=== PATIENT | female | born 1950 | race Caucasian/White ===

== ENCOUNTER 2018-06-07 15:19 | Outpatient (CLI) | payer MEDICARE, OTHER, SELFPAY ==
--- NOTE | 2018-06-07 15:33 | MRI_ITS ---
STUDY: MRI BRAIN WITHOUT CONTRAST REASON FOR EXAM: Female, 67 years old. TIA TECHNIQUE: Standardized multiplanar fat and water weighted pulse sequences were obtained. COMPARISON: None. FINDINGS: Mild atrophy and minor periventricular white matter ischemic changes without mass effect or restricted diffusion. Normal bilateral basal ganglia. Normal thalami. There is no extra-axial fluid accumulation. Normal flow voids within the major intracranial circulation suggesting patency by spin echo criteria. Normal sella turcica, pituitary gland, infundibular stalk, optic chiasm and hypothalamus. Normal tectal plate and pineal gland. Normal midbrain, nilson and medulla. Normal cerebellum. Normal basal cisterns. Normal bilateral temporal bones. Normal bilateral internal auditory canals. No demonstrated orbital abnormality, within the constraints of a routine brain study. Minor mucosal thickening of the ethmoid air cells and sphenoid sinus. Normal calvarium and skull base. Normal visualized soft tissue structures. Normal visualized upper cervical spine. MRI/Brain without Contrast IMPRESSION: Mild atrophy and minor periventricular white matter ischemic changes without evidence for acute infarct Electronically Signed: Víctor Navarrete MD at 16:47 EDT , Service support ,
--- NOTE | 2018-06-07 15:33 | MRI_ITS ---
STUDY: MRI CERVICAL SPINE WITHOUT CONTRAST REASON FOR EXAM: Female, 67 years old. Abnormal movement in arms and legs TECHNIQUE: Standardized fat and water weighted pulse sequences were obtained in the sagittal and axial planes. COMPARISON: None FINDINGS: Normal foramen magnum and brainstem-cervical cord junction. Normal craniovertebral junction. Normal anterior atlantoaxial articulation. Normal odontoid process. Normal cervical lordosis. Normal vertebral bodies and posterior osseous elements. C2-3: Normal endplates. Normal disc height, signal and morphology. Normal central canal and intervertebral neural foramina. C3-4: Grade 1 spondylolisthesis. Mild bulging disc osteophyte complex and left posterolateral/foraminal disc protrusion narrowing of the central canal and minor impingement upon the ventral surface of the cord. Severe left neural foraminal stenosis secondary to disc and bony hypertrophy. Moderate right neuroforaminal stenosis secondary to bony hypertrophy C4-5: Near-complete developmental fusion of C4 and C5 vertebral bodies. Small broad-based central osteophyte protrusion narrowing the central canal and mildly compressing the cord. Normal bilateral neuroforamina C5-6: Grade 1 retrolisthesis. Narrowed disc space and endplate spurring. Mild bulging disc osteophyte complex. Mild narrowing the central canal. Severe bilateral neuroforaminal stenosis secondary to bony hypertrophy C6-7: Narrowed disc space with endplate spurring. Minor bulging disc osteophyte complex. Normal central canal. Moderate right neural foramen and moderate left neuroforaminal stenosis due to bony hypertrophy. There are bilateral foraminal perineural cysts C7-T1: Near complete fusion of C7 and T1. Normal disc height, signal and morphology. Normal central canal and intervertebral neural foramina. Normal cervical cord. Normal visualized soft tissue structures. MRI/Spine Cervical (Routine) IMPRESSION: No evidence for acute fracture or subluxation. Advanced spondylosis and multilevel spinal stenosis secondary to disc disease and bony hypertrophy most severe at C3-4 and C5-C6 with findings as above Electronically Signed: Víctor Navarrete MD at 20:01 EDT , Service support ,
== END 2018-07-30 12:19 ==
PROVIDERS: Family Provider Family Medicine; PCP Family Medicine; Referring Provider Psychiatry & Neurology Neurology; Visit Provider Psychiatry & Neurology Neurology
DX: Z86.73 Personal history of transient ischemic attack (TIA), and cerebral infarction without residual deficits (principal); M48.02 Spinal stenosis, cervical region
CPT/HCPCS: 70551; 72141

== ENCOUNTER → 2018-07-07 20:06 | Outpatient (CLI) | payer MEDICARE, OTHER, SELFPAY | PROVIDERS: Family Provider Family Medicine; PCP Family Medicine; Visit Provider Psychiatry & Neurology Neurology | DX: G47.33 Obstructive sleep apnea (adult) (pediatric) (principal) | CPT/HCPCS: 95810 ==

== ENCOUNTER → 2018-11-25 15:17 | Outpatient (CLI) | payer MEDICARE, OTHER, SELFPAY ==
--- NOTE | 2018-11-25 15:30 | MRI_ITS ---
STUDY: MRI LUMBAR SPINE WITHOUT CONTRAST REASON FOR EXAM: Female, 68 years old. Mid low back pain. TECHNIQUE: Standardized fat and water weighted pulse sequences were obtained in the sagittal and axial planes. COMPARISON: None FINDINGS: T12-L1: Normal endplates. Disc space narrowing. There is a mild, noncompressive spondylotic bar. Normal bilateral facet joints. Normal central canal and bilateral lateral recesses. Normal bilateral intervertebral neural foramina. Normal lumbar lordosis. There is a moderate lumbar levoscoliosis. Normal conus medullaris that terminates at the T12-L1 level. L1-2: Normal endplates. Normal disc height, hydration and morphology. Normal bilateral facet joints. Normal central canal and bilateral lateral recesses. Normal bilateral intervertebral neural foramina. L2-3: Normal endplates. Disc dehydration and mild disc space narrowing. There is a mild, broad spondylotic bar, greater on the right. No canal stenosis. Foramina are patent. There is mild facet hypertrophy bilaterally. L3-4: Normal endplates. There is marked disc space narrowing. There is a mild, noncompressive spondylotic bar. There is mild bilateral facet hypertrophy. There is mild foraminal encroachment on the right due to spurring. L4-5: Normal endplates. Disc dehydration and moderate disc space narrowing. There is a mild, noncompressive spondylotic bar. No canal stenosis. There is mild bilateral facet hypertrophy. There is minimal foraminal encroachment due to spurring. L5-S1: Normal endplates. Disc dehydration and disc space narrowing. There is mild facet hypertrophy bilaterally. Normal central canal and bilateral lateral recesses. Normal bilateral intervertebral neural foramina. There is a 3.5 x 3.1 cm Tarlov cyst at the S2 level on the right. This causes marked remodeling of the vertebral body, and comprises nearly 100% of the AP diameter of the S2 vertebral body. There is increased risk for pathologic fracture. Normal visualized paraspinous soft tissue structures. MRI/Spine Lumbar (Routine) IMPRESSION: 1. 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 This is at high risk for pathologic fracture. 2. Moderate lumbar levoscoliosis. 3. There is no evidence of compressive disc disease, canal or high-grade foraminal stenosis. Degenerative changes are detailed above. Electronically Signed: Opal Goss MD at 23:32 EDT Tel , Service support ,
== END ==
PROVIDERS: Family Provider Family Medicine; PCP Family Medicine; Referring Provider Clinical Nurse Specialist Acute Care; Visit Provider Clinical Nurse Specialist Acute Care
DX: M54.5 Low back pain (principal)
CPT/HCPCS: 72148